=== PATIENT | male | born 1965 | race Caucasian/White ===

== ENCOUNTER 2023-11-28 12:07 | Outpatient (REF) | payer MEDICAID, SELFPAY ==
[2023-11-28 13:49] LABS: Estimated Average Glucose 103 mg/dL; Hemoglobin A1c % 5.2 % (<6.0)
[2023-11-28 13:57] LABS: Alanine Aminotransferase 11 U/L (0-40); Albumin Level 4.1 g/dL (3.5-5.0); Alkaline Phosphatase 76 U/L (39-117); Anion Gap 10 (12-20); Aspartate Amino Transferase 10 U/L (5-37); Bilirubin Total 0.4 mg/dL (0.0-1.0); Blood Urea Nitrogen 19 mg/dL (9-16); Calcium 9.9 mg/dL (8.4-10.2); Carbon Dioxide 29 mmol/L (22-29); Chloride 107 mmol/L (96-108); Cholesterol 158 mg/dL (<200); Estimated Glomerular Filt Rate > 60; Glucose Random 98 mg/dL (60-115); HDL Cholesterol 42 mg/dL (>40); LDL Cholesterol Calculated 86 mg/dL (<100); Potassium 3.7 mmol/L (3.3-5.1); Sodium 142 mmol/L (135-145); Total Protein 7.7 g/dL (6.5-8.0); Triglycerides 150 mg/dL (<150)
[2023-11-28 14:14] LABS: TSH reflex Free T4 0.68 uIU/mL (0.32-4.0)
[2023-11-28 14:59] LABS: Reflex LDLD? No
== END 2023-11-28 12:08 | disposition home or self-care (01) ==
LOC: HO.HHCL 12:07
PROVIDERS: Visit Provider Family Medicine
DX: E66.09 Other obesity due to excess calories (principal); I10 Essential (primary) hypertension
CPT/HCPCS: 36415; 80053; 80061; 83036; 84443

== ENCOUNTER 2023-11-29 15:22 | Outpatient (REF) | payer MEDICAID, SELFPAY ==
--- NOTE | ~2023-11-29 | XR_ITS ---
EXAMINATION: XR ELBOW, RIGHT CLINICAL INFORMATION: Pain; question epicondylitis. COMPARISON: None available. TECHNIQUE: AP, lateral, and oblique views of the right elbow. FINDINGS: The bones and soft tissues are normal. No fracture or joint effusion. Alignment is anatomic. Joint spaces are maintained. XR/XR elbow RT min 3V IMPRESSION: Normal right elbow.
== END 2023-11-29 15:23 | disposition home or self-care (01) ==
LOC: HO.HHCX 15:22
PROVIDERS: Visit Provider Family Medicine
DX: M25.521 Pain in right elbow (principal)
CPT/HCPCS: 73080

== ENCOUNTER 2023-12-21 09:17 | Outpatient (REF) | payer MEDICAID, SELFPAY ==
--- NOTE | ~2023-12-21 | XR_ITS ---
EXAMINATION: XR ELBOW, RIGHT CLINICAL INFORMATION: Pain in unspecified elbow. COMPARISON: 11/29/2023. TECHNIQUE: AP, lateral, and oblique views of the right elbow. FINDINGS: No significant joint effusion. Tiny dorsal olecranon spur. Alignment maintained. Bone mineralization is normal. No displaced fracture appreciated. XR/XR elbow RT min 3V IMPRESSION: Tiny dorsal olecranon spur.
== END 2023-12-21 09:18 | disposition home or self-care (01) ==
LOC: HO.HOSX 09:17
PROVIDERS: Visit Provider Physician Assistant
DX: M77.11 Lateral epicondylitis, right elbow (principal)
CPT/HCPCS: 73080; 99212

== ENCOUNTER 2023-12-21 12:39 | Outpatient (AMB) | payer MEDICAID, SELFPAY ==
--- NOTE | 2023-12-21 13:05 | A.OFFVIS_ITS ---
Vital Signs 12/21/23 13:12 Height 5 ft 10 in Weight 220 lb BMI 31.6 Handedness Right Intake Visit Reasons: New Pt - Right Elbow Pain Intake Note: Cole is a 58 year old right hand dominant male who presents today as a new patient for a evaluation of his right elbow pain. Patient reports having pain for a 1 + month. He states that his pain is on the elbow and it radiates up to his shoulder. Denies numbness and tingling. Allergies No Known Allergies Allergy (Verified 12/21/23 13:11) HPI HPI New Pt - Right Elbow Pain: Details: 58-year-old right hand dominant male who presents in the office today, as a new patient, for an evaluation of right elbow pain. Patient was referred to the office by his PCP status post a complaint of right elbow pain for weeks (encounter date 11/28/2023) accompanied by edema. While in the office today the patient reports having pain for over a month. He claims the pain in the elbow radiates up to his right shoulder. Denies numbness or tingling. 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 No ecchymosis, erythema, or edema. No tenderness to palpation over the olecranon. No tenderness to the medial or lateral epicondyle. Pain along the extensor tendon mass on the dorsal aspect of the forearm. NVI. Assessment & Plan Assessment & Plan (1) Lateral epicondylitis, right elbow: Code(s): M77.11 - Lateral epicondylitis, right elbow Category: Medical Plan Mr. Marie is a 58-year-old right hand dominant male who presents in the office today, as a new patient, for an evaluation of right elbow pain. Patient was referred to the office by his PCP status post a complaint of right elbow pain for weeks (encounter date 11/28/2023) accompanied by edema. While in the office today the patient reports having pain for over a month. He claims the pain in the elbow radiates up to his right shoulder. Denies numbness or tingling. Patient will be referred to physical therapy. A prescription for Meloxicam 15 mg PO daily was sent to the pharmacy. I recommend the use of a tennis elbow brace, which can be purchased over the counter. Follow up will be PRN, or sooner if needed. X-rays of the right elbow which were obtained while in the office today and were reviewed by me, Joan Thomas PA-C, revealed no acute fracture or dislocation. X-rays of the right elbow, obtained on 11/29/2023, revealed no acute fracture or dislocation. Orders: Orders XR elbow RT min 3V Today M25.529 - Pain in unspecified elbow PT Evaluation and Treatment Today M77.11 - Lateral epicondylitis, right elbow Medications: New meloxicam 15 mg PO DAILY 30 tabs 0RF 30 days Patient Instructions: Scribed by Tricia Ramos medical csr, for Joan Thomas PA-C on 12/21/2023 at 12:41 pm, EST. Coding Level of Care Code New Pt Level 4 (04433) Diagnoses Lateral epicondylitis, right elbow M77.11
[2023-12-21 13:12] VITALS: BMI 31.6
== END 2023-12-21 14:02 | disposition home or self-care (01) ==
PROVIDERS: PCP Family Medicine; Visit Provider Physician Assistant
DX: M77.11 Lateral epicondylitis, right elbow (principal)
CPT/HCPCS: 99204